=== PATIENT | female | born 1955 | race Caucasian/White ===

== ENCOUNTER 2019-10-10 13:12 | Outpatient (CLI) | payer BC | END 2019-10-10 13:13 | disposition home or self-care (01) | LOC: ULT 13:12 | PROVIDERS: ATTEND Family Medicine | DX: R60.0 Localized edema (principal); I08.3 Combined rheumatic disorders of mitral, aortic and tricuspid valves | CPT/HCPCS: 93306 ==

== ENCOUNTER 2020-02-28 11:18 | Outpatient (CLI) | payer BC ==
--- NOTE | 2020-02-28 13:56 | PET ---
EXAM: PET/CT HISTORY: History of colonic malignancy and elevated CEA TECHNIQUE: PET scanning with CT attenuation correction was performed from the base of the brain to the proximal thighs following the intravenous administration of 10.9. millicuries [id number]. COMPARISON: Prior CT of the chest, abdomen and pelvis dated February 02, 2020 FINDINGS: Biodistribution:The biodistribution for the exam appears acceptable. Head and neck: There is appropriate background activity within the brain. No hypermetabolic lymphaden opathy or masses identified. Thorax: No hypermetabolic pulmonary lesion, pleural effusion or lymphadenopathy is present. Abdomen and pelvis: There is expected background activity within the GI and systems.The large colo martín mass arising from the distal transverse colon, not appreciably changed in appearance by CT, demonstrates hypermetabolic activity with a peak SUV value of 20.87 and a mean value of 15.38. There is subtle nodularity involving the anterior left omentum, adjacent to the large mass, without associated hypermetabolic uptake. The peak SUV activity associated with this adjacent omental nodular ity is 2.02 with a mean activity 1.24. No hypermetabolic lymphadenopathy is evident. Osseous structures and skin: No hypermetabolic skin or osseous lesion is identified. IMPRESSION: Abnormal PET/CT 1. Large hypermetabolic distal transverse colonic mass corresponds patient's known colonic malignancy . 2. There is reticulation and nodularity involving the left upper quadrant omentum, adjacent to the la rge transverse colon mass, suspicious for early carcinomatosis. There is no associated hypermetabolic uptake associated with this nodular; however, majority of the nodularity is below PET resolution threshold. Continued CT follow-up is recommended.
== END 2020-02-28 11:19 | disposition home or self-care (01) ==
LOC: PET 11:18
PROVIDERS: ATTEND Internal Medicine Hematology & Oncology
DX: C18.9 Malignant neoplasm of colon, unspecified (principal); R97.0 Elevated carcinoembryonic antigen [CEA]
CPT/HCPCS: 78815; A9552

== ENCOUNTER 2020-03-15 08:30 | Outpatient (CLI) | payer BC ==
[2020-03-15 15:06] LABS: #Basophils 0.1 10x3/uL (0.0-0.2); #Eosinphils 0.2 10x3/uL (0.0-0.5); #Monocytes 0.6 10x3/uL (0.0-1.1); #Neutrophils 4.6 10x3/uL (1.5-8.4); %Basophils 0.9 % (0.0-2.0); %Eosinophils 1.7 % (0.0-6.0); %Lymphocytes 37.1 % (18.0-47.0); %Monocytes 6.6 % (0.0-10.0); %Neutrophils 53.4 % (40.0-75.0); Hemoglobin 11.1 g/dL (12.0-16.0); Mean Corpuscular HGB CONC 30.4 G/DL (32.0-36.0); Mean Corpuscular Hemoglobin 24.5 PG (27.0-33.0); Mean Corpuscular Volume 80.6 fl (80.0-100.0); Platelet Count 435 10x3/uL (130-400); RBC Distribution Width 16.3 % (11.5-14.5); Red Blood Cell (RBC) Count 4.53 10x6/uL (3.90-5.20); White Blood Cell (WBC) Count 8.7 10x3/uL (4.5-11.0)
[2020-03-15 15:13] LABS: Anion Gap 13 mmol/L (10-20); BUN (Urea Nitrogen) 17 mg/dL (9.8-20.1); Calc. Creatinine Clearance 0 mL/min (70-130); Calcium 9.4 mg/dL (7.8-10.44); Carbon Dioxide 25 mmol/L (23-31); Chloride 103 mmol/L (98-107); Glucose 85 mg/dL (80-115); Potassium 4.4 mmol/L (3.5-5.1); Sodium 137 mmol/L (136-145)
[2020-03-15 18:40] LABS: Hemoglobin A1c 5.1 % (4.0-6.0)
[2020-03-16 02:11] LABS: SARS-CoV-2 MS2 Positive; SARS-CoV-2 N Gene Negative; SARS-CoV-2 S Gene Negative; SARS-CoV-2 by NAA Not Detected (NotDetected); SARS-CoV-2 orf1ab Negative
== END 2020-03-15 08:31 | disposition home or self-care (01) ==
LOC: LABBT 08:30
PROVIDERS: ATTEND Surgery
DX: Z01.818 Encounter for other preprocedural examination (principal); Z20.828 Contact with and (suspected) exposure to other viral communicable diseases; C18.9 Malignant neoplasm of colon, unspecified
CPT/HCPCS: 80048; 83036; 85025; 87635; 93005; 93010; U0003

== ENCOUNTER 2020-03-15 13:00 | Inpatient (IN) | payer BC ==
[2020-03-20] MEDS ORDERED: cefOXitin Sodium/Dextrose 2 GM/50 ML BAG ONE (08:55)
[2020-03-20] MEDS ORDERED: Fentanyl 100 MCG/2 ML VIAL ONE ×6 (09:37→16:13)
[2020-03-20] MEDS ORDERED: Midazolam HCl 2 mg/2 ml Vial ONE ×2 (09:37→09:56)
[2020-03-20] MEDS ORDERED: Ondansetron PF 4 MG/2 ML Vial ONE (10:55)
[2020-03-20] MEDS ORDERED: Glycopyrrolate 0.2 MG/ML 5 ML SYRINGE ONE (10:55)
[2020-03-20] MEDS ORDERED: Rocuronium Bromide 10 MG/ML (10ML VIAL) ONE (10:55)
[2020-03-20] MEDS ORDERED: PROPOFOL 200 MG/20 ML VIAL ONE (10:55)
[2020-03-20] MEDS ORDERED: PHENYLEPHRINE-NS 100 MCG/ML 10 ML SYRINGE ONE (10:55)
[2020-03-20] MEDS ORDERED: Lidocaine 1% PF 5 ML VIAL ONE (10:55)
[2020-03-20] MEDS ORDERED: Dexamethasone 20 MG/5 ML VIAL ONE (10:55)
[2020-03-20] MEDS ORDERED: Bupivacaine HCl 0.5%/Epinephrine 1:200,000/PF 30 ml Vial ONE (10:55)
[2020-03-20] MEDS ORDERED: Promethazine HCl 25 MG/ML VIAL IM PRN ×2 (12:03→13:02)
[2020-03-20] MEDS ORDERED: Ondansetron HCl/PF 4 MG/2 ML Vial IVP PRN (12:03)
[2020-03-20] MEDS ORDERED: Promethazine HCl 25 MG/ML VIAL SLOW IVP PRN (12:03)
[2020-03-20] MEDS ORDERED: HYDROmorphone 2 MG/ML VIAL SLOW IVP PRN (12:03)
[2020-03-20] MEDS ORDERED: hydrALAZINE 20 MG/ML VIAL SLOW IVP PRN (13:02)
[2020-03-20] MEDS ORDERED: Fentanyl 100 MCG/2 ML VIAL SLOW IVP PRN (13:02)
[2020-03-20] MEDS ORDERED: traMADol HCl 50 MG TAB PO PRN (13:02)
[2020-03-20] MEDS ORDERED: Ondansetron PF 4 MG/2 ML Vial IVP PRN (13:02)
[2020-03-20] MEDS ORDERED: D5 1/2 NS w/20 mEq KCL 1,000 ML ONE (13:40)
[2020-03-20] MEDS: D5 1/2 NS w/20 mEq KCL 1,000 ML IV SCH ×2 (13:54→20:09)
[2020-03-20] MEDS ORDERED: cefOXitin Sodium/Dextrose,Iso 1 GM in Premix Bag 1 BAG IVPB SCH (17:00)
[2020-03-20] MEDS: traMADol HCl 50 MG TAB PO PRN ×2 (17:41→23:24)
[2020-03-20] MEDS: Furosemide 20 MG TAB PO SCH (20:08)
[2020-03-20] MEDS: Fentanyl 100 MCG/2 ML VIAL SLOW IVP PRN (20:08)
[2020-03-20] MEDS: Famotidine 20 MG TAB PO SCH (20:08)
[2020-03-20] MEDS: Famotidine/PF 20 mg/2ml Vial SLOW IVP SCH (20:09)
[2020-03-21] MEDS: Fentanyl 100 MCG/2 ML VIAL SLOW IVP PRN ×4 (00:06→08:52)
[2020-03-21] MEDS ORDERED: cefOXitin Sodium 1 GM in Sodium Chloride 0.9% 100 ML IVPB SCH (01:00)
[2020-03-21 05:18] LABS: #Lymphocytes 2.4 thou/uL (1.20-3.40); #Neutrophils 6.9 thou/uL (1.40-6.50); %Basophils 0.2 % (0.0-1.0); %Eosinophils 0.2 % (0.0-10.0); %Lymphocytes 23.2 % (21.0-51.0); %Monocytes 9.6 % (0.0-10.0); %Neutrophils 66.9 % (42.0-75.0); Hemoglobin 12.1 g/dL (12.0-16.0); Mean Corpuscular HGB CONC 31.5 g/dL (32.0-36.0); Mean Corpuscular Hemoglobin 25.4 pg (27.0-31.0); Mean Corpuscular Volume 80.7 fL (78.0-98.0); Mean Platelet Volume 7.9 fL (7.4-10.4); Platelet Count 352 thou/uL (130-400); RBC Distribution Width 15.8 % (11.5-14.5); Red Blood Cell (RBC) Count 4.74 mill/uL (4.20-5.40); White Blood Cell (WBC) Count 10.3 thou/uL (4.8-10.8)
[2020-03-21 05:27] LABS: Anion Gap 14 mmol/L (10-20); BUN (Urea Nitrogen) 8 mg/dL (9.8-20.1); Calc. Creatinine Clearance 90 mL/min (70-130); Calcium 8.9 mg/dL (7.8-10.44); Carbon Dioxide 24 mmol/L (23-31); Chloride 105 mmol/L (98-107); Glucose 124 mg/dL (80-115); Potassium 4.4 mmol/L (3.5-5.1); Sodium 139 mmol/L (136-145)
[2020-03-21] MEDS: traMADol HCl 50 MG TAB PO PRN (05:43)
[2020-03-21] MEDS: D5 1/2 NS w/20 mEq KCL 1,000 ML IV SCH ×2 (05:44→17:57)
--- NOTE | 2020-03-21 07:10 | PDOC.GSPN ---
Surgery Progress Note: Subj - Subjective Patient reports: nausea, no bowel movement, no flatus, still having pain Narrative: Patient is post op day 1 from an extended R colectomy with partial small bowel resection. She is currently experiencing 4/10 pain, but describes the pain as gas related. Her incision and abdomen are nontender. Pain is exacerbated with deep inspiration. She has been tolerating her liquids well and had been ambulatory. Surgery Progress Note: Obj - Vital signs Vital signs: Vital Signs - Most Recent Temp Pulse Resp BP Pulse Ox 98.8 F 80 19 129/78 98 03/21/20 03:24 03/21/20 03:24 03/21/20 03:24 03/21/20 03:24 03/21/20 03:24 - Physical Exam General: no distress, well developed, well nourished, moderate pain (gas related) Cardiovascular: regular rate and rhythm Respiratory: clear to auscultation, breath sounds present, other (pain on deep inspiration) Abdomen: soft, nondistended, positive bowel sounds, appropriately tender Wound: dressing clean,dry,intact, healing well (minimal bruising around the incision) Surgery Progress Note: Results - Labs Result Diagrams: 03/21/20 05:05 03/21/20 05:05 Lab results: Laboratory Results - last 12 hr 03/21/20 03/21/20 05:05 05:05 WBC 10.3 RBC 4.74 Hgb 12.1 Hct 38.3 MCV 80.7 MCH 25.4 L MCHC 31.5 L RDW 15.8 H Plt Count 352 MPV 7.9 Neutrophils % 66.9 Lymphocytes % 23.2 Monocytes % 9.6 Eosinophils % 0.2 Basophils % 0.2 Neutrophils # 6.9 H Lymphocytes # 2.4 Monocytes # 1.0 H Eosinophils # 0.0 Basophils # 0.0 Sodium 139 Potassium 4.4 Chloride 105 Carbon Dioxide 24 Anion Gap 14 BUN 8 L Creatinine 0.82 Estimated GFR (MDRD) 71 Glucose 124 H Calcium 8.9 Surgery Progress Note: A/P - Plan Plan: Distal transverse colon mass resection Patient is doing well and tolerating liquids, consider move to full liquids if she continues to tolerate without N/V. Continue to encourage ambulation and current pain meds. Consider adding something to alleviate gas pain that is currently causing her the most distress.
--- NOTE | 2020-03-21 08:47 | OP ---
DATE OF PROCEDURE: 03/20/2020 PREOPERATIVE DIAGNOSIS: Transverse colon mass, locally invasive. POSTOPERATIVE DIAGNOSIS: Transverse colon mass, locally invasive. PROCEDURES: 1. Extended right colectomy with ileo descending colon anastomosis. 2. Splenic flexure mobilization. 3. Small bowel resection and anastomosis. ANESTHESIA: General. ESTIMATED BLOOD LOSS: Minimal. COMPLICATIONS: None. SPECIMEN: Colon with attached small intestine. ESTIMATED BLOOD LOSS: 100 mL. COMPLICATIONS: None. INDICATION: The patient is a 64-year-old female with a history of a locally invasive transverse colon mass with mild obstructive symptoms. Her PET scan showed locally invasive disease, but no metastatic disease. DESCRIPTION OF PROCEDURE: The patient underwent mechanical and antibiotic bowel prep. She had TAP blocks preoperatively, taken to the operating room, supine on the operating table. After general anesthetic was obtained, the abdomen was prepped and draped in a sterile fashion. Left subcostal 5-mm Optiview trocar was placed in usual fashion without injury and high-flow pneumoperitoneum was obtained. A 5-mm port was placed below the umbilicus due to locally invasive nature of the mass the fact that the intestine was stuck to its side as well as omentum. Decision was made to open. Midline incision was made. Bookwalter retractor was placed. This tumor was in the distal transverse colon. Decision was made for extended right colectomy. Right colon was mobilized along the white line of Toldt. The hepatic flexure was mobilized in usual fashion. The lesser sac was entered. There was significant locally invasive inflammatory effect around the tumor in the lesser and greater omentum in the area, so this was all widely removed using LigaSure. There was an area where the small bowel was adhesed to this tumor. Decision was made to resect the small area of small bowel. SHAKILA 75 stapler was fired proximal and distal to this area. Mesentery was taken using the LigaSure. A cbzq-[id number] anastomosis using SHAKILA 75 was then done with a TA60 to close the common enterotomy. SHAKILA 75 was fired across the terminal ileum. The ileocolic vessels were taken low using Angela clamp and silk tie, middle colic vessels taken using Angela clamp and silk tie. The splenic flexure was then mobilized in the usual fashion. There was a small serosal tear on the spleen during this difficult splenic flexure mobilization. This was packed. SHAKILA 75 stapler was then able to be fired across the proximal descending colon. The specimen was sent to Path for final diagnosis. The small intestine was able to be brought against the descending colon under no tension and a zbfi-hz-feek anastomosis was performed. The common enterotomy was closed using a 2-0 Vicryl suture. There was no more bleeding on the spleen serosal tear. However, Zhane anti-bleeding starch was placed in the area. The abdomen was irrigated. The mesenteric defect was closed using silk sutures. The midline fascia was closed using #1 PDS from the top and the bottom and tied in the middle. Subcutaneous tissues were irrigated copiously. Meticulous hemostasis was obtained and subcutaneous tissues. The wound was closed using 3-0 Vicryl, 4-0 Monocryl and Dermabond. The patient was en route to Recovery in stable condition. All instrument counts, needle counts, lap counts were correct. Job ID: [id number]
[2020-03-21] MEDS: Famotidine 20 MG TAB PO SCH ×2 (08:52→21:16)
[2020-03-21] MEDS: Enoxaparin Sodium 40 MG/0.4 ML SYRINGE SC SCH (08:53)
[2020-03-21] MEDS: Famotidine/PF 20 mg/2ml Vial SLOW IVP SCH ×2 (08:59→21:27)
[2020-03-21] MEDS ORDERED: fentaNYL Citrate/PF 2,000 MCG in Sodium Chloride 0.9% 60 ML IV PRN (09:00)
[2020-03-21] MEDS ORDERED: Fentanyl 100 MCG/2 ML VIAL SLOW IVP SCH (09:00)
[2020-03-21] MEDS ORDERED: Ketorolac Tromethamine 30 MG/ML VIAL IVP PRN (09:00)
[2020-03-21] MEDS ORDERED: Naloxone HCl 0.4 mg/ml Vial IV PRN (09:00)
[2020-03-21] MEDS ORDERED: Promethazine HCl 25 MG/ML VIAL IM PRN (09:00)
[2020-03-21] MEDS ORDERED: Prevnar 13-Val Conj/PF 0.5 ML SYRINGE IM ONE (09:00)
[2020-03-21] MEDS ORDERED: diphenhydrAMINE 50 MG/ML VIAL IM/IV PRN (09:00)
[2020-03-21] MEDS ORDERED: Ondansetron PF 4 MG/2 ML Vial IVP PRN (09:00)
[2020-03-21] MEDS ORDERED: diphenhydrAMINE 25 MG CAP PO PRN (09:00)
[2020-03-21] MEDS ORDERED: Zolpidem Tartrate 5 MG TAB PO PRN (09:00)
[2020-03-21] MEDS: Pramipexole Di-HCl 0.25 MG TAB PO SCH (12:07)
--- NOTE | 2020-03-21 14:02 | PRG ---
DATE OF SERVICE: 03/21/2020 SUBJECTIVE: Postop day one, extended right colectomy. Ms. Hensley's pain is much better controlled now. She is ambulatory. No nausea. PHYSICAL EXAMINATION: She is afebrile. Vital signs are stable. Her abdomen is soft. She has minimal appropriate tenderness around her incision. Her incision is closed with super glue with no evidence of infection. ASSESSMENT: Postoperative day one, extended right colectomy for large locally invasive colon cancer. PLAN: Try full liquids tonight. Continue to encourage ambulation. Job ID: [id number]
[2020-03-21 15:40] VITALS: BMI 27.7
[2020-03-21] MEDS: Furosemide 20 MG TAB PO SCH (21:27)
[2020-03-22] MEDS: Famotidine 20 MG TAB PO SCH ×2 (08:23→21:09)
[2020-03-22] MEDS: Enoxaparin Sodium 40 MG/0.4 ML SYRINGE SC SCH (08:24)
[2020-03-22] MEDS: D5 1/2 NS w/20 mEq KCL 1,000 ML IV SCH (08:24)
[2020-03-22] MEDS: Famotidine/PF 20 mg/2ml Vial SLOW IVP SCH ×2 (08:30→21:17)
[2020-03-22] MEDS ORDERED: Ketorolac Tromethamine 30 MG/ML VIAL IVP PRN (08:55)
--- NOTE | 2020-03-22 09:09 | PRG ---
DATE OF SERVICE: 03/22/2020 SUBJECTIVE: Ms. Hensley is doing quite well. She tolerated the full liquid. She is ambulatory. She has minimal pain now. OBJECTIVE: VITAL SIGNS: She is afebrile. Vital signs are stable. ABDOMEN: Soft. Her wound is healing well. ASSESSMENT: Postop day #2, extended right colectomy. PLAN: Continue full liquid diet. We will start [place] for pain, discontinue the [employer]NAGER [employer]. I suspect she will be ready for discharge tomorrow. Job ID: [id number]
[2020-03-22] MEDS: Pramipexole Di-HCl 0.25 MG TAB PO SCH (13:44)
[2020-03-22] MEDS: HYDROcodone/Acetaminophen 7.5/325 mg Tablet PO PRN ×2 (13:44→21:14)
[2020-03-22] MEDS: Furosemide 20 MG TAB PO SCH (21:17)
[2020-03-23] MEDS: HYDROcodone/Acetaminophen 7.5/325 mg Tablet PO PRN ×2 (02:28→08:45)
[2020-03-23 07:54] VITALS: BP 144/71; TEMP 98.3
[2020-03-23] MEDS: Famotidine 20 MG TAB PO SCH (08:45)
--- NOTE | 2020-03-26 02:18 | PQF ---
CLINICAL DOCUMENTATION CLARIFICATION FORM: Dear : Armando Baca Date / Time: 03/26/20216 Please exercise your independent, professional judgment in responding to the clarification form. Clinical indicators are provided on the bottom of this form for your review Clarification of Pathology report: Please check appropriate box(es): [ ] Agree w the pathology finding of: Metastatic Carcinoma involving 1 out of 29 pericolonic Lymph nodes [ ] Other explanation of pathology findings (please specify) [ ] Other diagnosis [ ] Unable to determine Physician Signature: Date/Time: For continuity of documentation, please document condition throughout progress notes and discharge summary. Thank You. To be completed by CDI/Coding staff for physician review: Present Clinical Indicators - Signs / Symptoms / Labs Results and Location in Medical Record [x] Metastatic Carcinoma involving 1 out of 29 pericolonic Lymph nodes Path report 03/20 [x] Invasive mucinous adenocarcinoma moderate differentiated Path report 03/20 [x] Transverse colon mass, locally invasive Operative report p1 03/20 Dr Baca Present Risk Factors Results and Location in Medical Record [x] 64 year-old Female Operative report p1 03/20 Dr Baca [x] Colon cancer Operative report p1 03/20 Dr Baca Present Treatments Results and Location in Medical Record [x] Right colectomy Operative report p1 03/20 Dr Baca [x] Small bowel resection Operative report p1 03/20 Dr Baca CDS/Insurance Adjustor Signature: Rosana Leah Mccrary Phone #: [phone] Date/Time: 03/26/20216 This is a permanent part of the Medical Record [facility]
== END 2020-03-23 12:33 | disposition home or self-care (01) | DRG 330 ==
LOC: SURG A 03-20 08:50 → EDSTATUS 03-20 13:00 → SURG A 03-20 16:53
PROVIDERS: ADMIT Surgery; ATTEND Surgery
PROC: 0DBF0ZZ Excision of Right Large Intestine, Open Approach (ICD-10-PCS; principal; 2020-03-20)
PROC: 0DB80ZZ Excision of Small Intestine, Open Approach (ICD-10-PCS; 2020-03-20)
DX: C18.4 Malignant neoplasm of transverse colon (principal); D68.51 Activated protein C resistance; E78.5 Hyperlipidemia, unspecified; K21.9 Gastro-esophageal reflux disease without esophagitis; Z88.0 Allergy status to penicillin; Z79.899 Other long term (current) drug therapy; Z79.82 Long term (current) use of aspirin; Z23 Encounter for immunization; Z20.822 Contact with and (suspected) exposure to COVID-19
CPT/HCPCS: 36415; 36416; 80048; 85025; 88309; J0694; J1100; J1650; J2250; J2405; J2704; J3010; J3480; J3490

== ENCOUNTER 2020-04-13 07:48 | Outpatient (CLI) | payer BC ==
[2020-04-14 06:16] LABS: SARS-CoV-2 PCR by NAA Not Detected (NotDetected)
== END 2020-04-13 07:49 | disposition home or self-care (01) ==
LOC: LABBT 07:48
PROVIDERS: ATTEND Surgery
DX: Z01.812 Encounter for preprocedural laboratory examination (principal); Z20.822 Contact with and (suspected) exposure to COVID-19
CPT/HCPCS: 87635; U0003; U0005

== ENCOUNTER 2020-04-17 05:57 | Day surgery (SDC) | payer BC ==
[2020-04-12 15:12] VITALS: BMI 29.0
[2020-04-17] MEDS ORDERED: Bupivacaine 0.25% HCL 30 ML VIAL ONE (06:35)
[2020-04-17] MEDS ORDERED: XYLOCAINE 2%-EPI 1:100,000 20 ML VIAL ONE (06:35)
[2020-04-17] MEDS ORDERED: Midazolam HCl 2 mg/2 ml Vial ONE (07:02)
[2020-04-17] MEDS ORDERED: Fentanyl 100 MCG/2 ML VIAL ONE (07:02)
[2020-04-17] MEDS ORDERED: Levofloxacin 500 mg/D5W 100 ml Premix Bag ONE (07:27)
--- NOTE | 2020-04-17 08:27 | OP ---
DATE OF PROCEDURE: 04/17/2020 PREOPERATIVE DIAGNOSIS: Colon cancer. POSTOPERATIVE DIAGNOSIS: Colon cancer. PROCEDURE PERFORMED: Tunneled central line with subcutaneous port (MediPort, CT injectable). ANESTHESIA: General. ESTIMATED BLOOD LOSS: Minimal. COMPLICATIONS: None. SPECIMENS: None. FINDINGS: Tip of the catheter was at the atriocaval junction. DESCRIPTION OF PROCEDURE: The patient was taken to the operating room and laid supine on the operating room table. After general anesthetic was obtained, bilateral neck and chest were prepped and draped in a sterile fashion. Local anesthetic infiltrated over the right internal jugular vein. Internal jugular vein was cannulated using a 22-gauge Finder needle followed by a Seldinger needle. Wire was passed into the superior vena cava under fluoro guidance. A small zach was made at the wire entrance site. A separate 3 cm incision was made in the right upper chest. Subcutaneous pocket was made below the lower incision. Tubing for the MediPort tunneled from the inferior to superior incision. Introducer sheath was placed over the wire into the superior vena cava. The dilator and wire were removed. The end of catheter was sewed into the sheath. The sheath was peeled away. The tip of the catheter was at the atriocaval junction. MediPort tubing cut to fit the MediPort at the lower incision, connected to the MediPort, which was sewn to the chest wall in a subcutaneous pocket using Prolene. The wounds were irrigated and flushed with a heparin flush. The wounds were closed using 4-0 Monocryl and Dermabond. The MediPort was left accessed. It is going to be used immediately postoperatively. The patient was sent to Recovery in stable condition. All instrument counts, needle counts, and lap counts were correct. Job ID: [id number]
--- NOTE | 2020-04-17 09:08 | RAD ---
XR Chest 1 View Portable HISTORY: Malignant neoplasm of the splenic flexure. COMPARISON: 07/20/2019 FINDINGS: The heart size is normal. There has been interval placement of right internal jugular Port- A-Cath with tip in the projection of the SVC. The lungs are well expanded without focal areas of consolidation, pneumothorax or pleural effusions. IMPRESSION: No radiographic evidence of acute cardiopulmonary process.
[2020-04-17] MEDS ORDERED: Lidocaine 1% PF 5 ML VIAL ONE (10:37)
[2020-04-17] MEDS ORDERED: PHENYLEPHRINE-NS 100 MCG/ML 10 ML SYRINGE ONE (10:37)
[2020-04-17] MEDS ORDERED: ePHEDrine 50 MG/ML VIAL ONE (10:37)
[2020-04-17] MEDS ORDERED: PROPOFOL 200 MG/20 ML VIAL ONE (10:37)
[2020-04-17] MEDS ORDERED: Ondansetron PF 4 MG/2 ML Vial ONE (10:37)
[2020-04-17] MEDS ORDERED: Dexamethasone 20 MG/5 ML VIAL ONE (10:37)
== END 2020-04-17 09:40 | disposition home or self-care (01) ==
LOC: SDC 05:57
PROVIDERS: ATTEND Surgery
PROC: 02HV33Z Insertion of Infusion Device into Superior Vena Cava, Percutaneous Approach (ICD-10-PCS; principal; 2020-04-17)
DX: C18.4 Malignant neoplasm of transverse colon (principal); D68.51 Activated protein C resistance; E78.00 Pure hypercholesterolemia, unspecified; Z79.82 Long term (current) use of aspirin; Z79.899 Other long term (current) drug therapy; Z88.0 Allergy status to penicillin; C18.5 Malignant neoplasm of splenic flexure; D50.0 Iron deficiency anemia secondary to blood loss (chronic)
CPT/HCPCS: 71045; 80053; 82248; 82378; 83615; 84100; 84550; C1788; J0690; J1100; J1642; J1956; J2250; J2405; J2704; J3010; J3490; S0020

== ENCOUNTER 2020-07-20 07:34 | Outpatient (CLI) | payer BC | END 2020-07-20 07:35 | disposition home or self-care (01) | LOC: ULT 07:34 | PROVIDERS: ATTEND Internal Medicine Hematology & Oncology | DX: C18.5 Malignant neoplasm of splenic flexure (principal); D50.0 Iron deficiency anemia secondary to blood loss (chronic); R94.5 Abnormal results of liver function studies; K76.0 Fatty (change of) liver, not elsewhere classified; R16.1 Splenomegaly, not elsewhere classified | CPT/HCPCS: 93975 ==

== ENCOUNTER 2020-08-31 11:20 | Day surgery (SDC) | payer BC ==
[2020-08-31] MEDS ORDERED: diphenhydrAMINE 25 MG CAP PO SCH (12:15)
[2020-08-31] MEDS ORDERED: Acetaminophen 500 MG TAB PO SCH (12:15)
[2020-08-31 14:51] VITALS: BP 141/73; TEMP 98.9
== END 2020-08-31 14:51 | disposition home or self-care (01) ==
LOC: ONC/OP 11:20 → EEVIPCON 11:20 → ONC/OP 14:51
PROVIDERS: ATTEND Internal Medicine Hematology & Oncology
PROC: 30233N1 Transfusion of Nonautologous Red Blood Cells into Peripheral Vein, Percutaneous Approach (ICD-10-PCS; principal; 2020-08-31)
DX: D64.9 Anemia, unspecified (principal); D69.6 Thrombocytopenia, unspecified; Z88.0 Allergy status to penicillin
CPT/HCPCS: 36430; 86850; 86900; 86901; P9016

== ENCOUNTER 2021-04-08 08:31 | Outpatient (CLI) | payer BC ==
[2021-04-08] MEDS ORDERED: Iopamidol 370 76% 50 ML VIAL FS ONE (10:14)
[2021-04-08] MEDS ORDERED: Iopamidol 370 76% 100 ML VIAL ONE (10:14)
== END 2021-04-08 08:32 | disposition home or self-care (01) ==
LOC: CT 08:31
PROVIDERS: ATTEND Internal Medicine Hematology & Oncology
DX: C18.5 Malignant neoplasm of splenic flexure (principal); D50.0 Iron deficiency anemia secondary to blood loss (chronic)
CPT/HCPCS: 71260; 74177; 82565

== ENCOUNTER 2022-02-24 09:03 | Outpatient (CLI) | payer BC | END 2022-02-24 09:04 | disposition home or self-care (01) | LOC: BICCT 09:03 | PROVIDERS: ATTEND Internal Medicine Hematology & Oncology | DX: C18.5 Malignant neoplasm of splenic flexure (principal); D50.0 Iron deficiency anemia secondary to blood loss (chronic) | CPT/HCPCS: 71260; 74177; 82565 ==

== ENCOUNTER 2023-01-28 09:41 | Outpatient (CLI) | payer MEDICARE, BC ==
[2023-01-28] MEDS ORDERED: Iopamidol 370 76% 100 ML VIAL ONE (10:41)
== END 2023-01-28 09:42 | disposition home or self-care (01) ==
LOC: BICCT 09:41
PROVIDERS: ATTEND Internal Medicine Hematology & Oncology
DX: C18.5 Malignant neoplasm of splenic flexure (principal); K76.0 Fatty (change of) liver, not elsewhere classified
CPT/HCPCS: 71260; 74177; 82565

== ENCOUNTER 2023-06-10 09:04 | Outpatient (CLI) | payer MEDICARE ==
[2023-06-10] MEDS ORDERED: Iopamidol 370 76% 100 ML VIAL ONE (10:02)
== END 2023-06-10 09:05 | disposition home or self-care (01) ==
LOC: CT 09:04
PROVIDERS: ATTEND Internal Medicine Hematology & Oncology
DX: C18.5 Malignant neoplasm of splenic flexure (principal); R97.8 Other abnormal tumor markers; R16.0 Hepatomegaly, not elsewhere classified
CPT/HCPCS: 71260; 74177; 82565; Q9967